=== PATIENT | female | born 1970 | race Caucasian/White ===

== ENCOUNTER 2019-05-06 21:52 | Emergency (ER) | payer MEDICAID ==
--- NOTE | 2019-05-06 22:44 | ED Physician Chart ---
ED Chief Complaint/HPI - Patient Information Date Seen:: 05/06/19 Time Seen:: 22:39 Chief Complaint:: Dizziness History of Present Illness:: 48 yo female with history of stroke with right hemiparesis, developed dizziness , headache, nausea and vomiting for 8 days. Pt stated that changing body position would worsen dizziness. Pt has light sensitivity. Allergies:: Allergies Allergy/AdvReac Type Severity Reaction Status Date / Time No Known Allergies Allergy Verified 05/06/19 22:10 Vitals:: Vital Signs - 8 hr 05/06/19 21:55 Temp 97.7 F HR 84 RR 19 BP 140/89 O2 Sat % 99 ED Review of Systems - Review of Systems General/Constitutional: No fever, No chills Skin: No rash Head: Light headed Eyes: No pain ENT: No nasal drainage Neck: No neck pain Cardio Vascular: No chest pain Pulmonary: No SOB GI: No nausea, No vomiting Musculoskeletal: No bone or joint pain Neurological: Focal symptoms ED Past Medical History - Past Medical History Past Medical History: HTN, DM, Dyslipidemia Social History: Non Smoker, No Alcohol, No Drug Use Surgical History: (x 2) ED Physical Exam - Physical Examination General/Constitutional: Awake, Alert Head: Atraumatic Eyes: PERRL, EOMI Skin: No skin lesions ENMT: Nasal exam nl Neck: No nuchal rigidity Respiratory: Clear to Auscultation Cardio Vascular: RRR, No murmur, gallop, rubs, NL S1 S2 GI: No tenderness/rebounding/guarding Extremities: No edema Neuro/Psych: Alert/oriented Other Neuro/Psych comments:: RUE 4/5, RLE 4/5, LUE 5/5, LLE 5/5 ED Labs/Radiology/EKG Results - Lab Results Results: Laboratory Last Values WBC 8.3 Th/cmm (4.8-10.8) 05/06/19 23:15 RBC 5.06 Mil/cmm (3.80-5.10) 05/06/19 23:15 Hgb 11.5 gm/dL (12-16) L 05/06/19 23:15 Hct 35.0 % (41.0-60) L 05/06/19 23:15 MCV 69.3 fl (81-100) L 05/06/19 23:15 MCH 22.7 pg (27.0-31.0) L 05/06/19 23:15 MCHC Differential 32.8 pg (28.0-36.0) 05/06/19 23:15 RDW 21.9 % (11.5-20.0) H 05/06/19 23:15 Plt Count 293 Th/cmm (150-400) 05/06/19 23:15 MPV 9.6 fl 05/06/19 23:15 Neutrophils % 52.7 % (40.0-80.0) 05/06/19 23:15 Lymphocytes % 39.6 % (20.0-50.0) 05/06/19 23:15 Monocytes % 4.3 % (2.0-10.0) 05/06/19 23:15 Eosinophils % 2.6 % (0.0-5.0) 05/06/19 23:15 Basophils % 0.8 % (0.0-2.0) 05/06/19 23:15 PT 9.7 SECONDS (9.5-11.5) 05/06/19 23:15 INR 0.93 (0.5-1.4) 05/06/19 23:15 PTT (Actin FS) 23.6 SECONDS (26.0-38.0) L 05/06/19 23:15 Sodium 137 mEq/L (136-145) 05/06/19 23:15 Potassium 3.9 mEq/L (3.5-5.1) 05/06/19 23:15 Chloride 103 mEq/L (98-107) 05/06/19 23:15 Carbon Dioxide 25.0 mEq/L (21.0-31.0) 05/06/19 23:15 Anion Gap 12.9 (7.0-16.0) 05/06/19 23:15 BUN 17 mg/dL (7-25) 05/06/19 23:15 Creatinine 0.6 mg/dL (0.6-1.2) 05/06/19 23:15 Est GFR ( Amer) > 60.0 ml/min (>90) 05/06/19 23:15 Est GFR (Non-Af Amer) > 60.0 ml/min 05/06/19 23:15 BUN/Creatinine Ratio 28.3 05/06/19 23:15 Glucose 312 mg/dL (70-105) H 05/06/19 23:15 Calcium 9.7 mg/dL (8.6-10.3) 05/06/19 23:15 Total Bilirubin 0.4 mg/dL (0.3-1.0) 05/06/19 23:15 AST 11 U/L (13-39) L 05/06/19 23:15 ALT 12 U/L (7-52) 05/06/19 23:15 Alkaline Phosphatase 104 U/L (34-104) 05/06/19 23:15 Total Protein 7.6 gm/dL (6.0-8.3) 05/06/19 23:15 Albumin 4.2 gm/dL (3.7-5.3) 05/06/19 23:15 Globulin 3.4 gm/dL 05/06/19 23:15 Albumin/Globulin Ratio 1.2 (1.0-1.8) 05/06/19 23:15 - Radiology Results Results: CT head wo contrast: no evidence of acute intracranial abnormality ED Assessment - Assessment General Assessment: BPPV Anemia, microcytic Assessment/Comments:: CT head wo contrast Meclizine 25 mg ED Septic Shock - . Is Septic Shock (SBP<90, OR Lactate>4 mmol\L) present?: No - <6hrs of presentation: Vital Signs: Vital Signs - 8 hr 05/06/19 21:55 Temp 97.7 F HR 84 RR 19 BP 140/89 O2 Sat % 99 ED Reassessment (Disposition) - Reassessment Reassessment:: Pt's headache and dizziness significantly improved after meclizine. Reassessment Condition:: Improved - Aftercare/Follow up Instructions Medication Prescribed:: Meclizine 25 mg q8h prn for dizziness, #30 - Patient Disposition Discharge/Transfer:: Home
[2019-05-06 23:28] LABS: % BASOPHILS 0.8 % (0.0-2.0); % EOSINOPHILS 2.6 % (0.0-5.0); % LYMPHOCYTES 39.6 % (20.0-50.0); % MONOCYTES 4.3 % (2.0-10.0); % NEUTROPHILS 52.7 % (40.0-80.0); BASOPHILE ABSOLUTE 0.1 Th/cumm (0-0.2); EOSINOPHILE ABSOLUTE 0.2 Th/cmm (0.1-0.4); HEMOGLOBIN 11.5 gm/dL (12-16); LYMPHOCYTE ABSOLUTE 3.3 Th/cmm (1.5-3.0); MEAN CELL VOLUME 69.3 fl (81-100); MEAN CORPUSCULAR HEMOGLOBIN 22.7 pg (27.0-31.0); MEAN CORPUSCULAR HGB CONC 32.8 pg (28.0-36.0); MONOCYTE ABSOLUTE 0.4 Th/cmm (0.3-1.0); NEUTROPHILE ABSOLUTE 4.3 Th/cmm (1.8-8.0); PLATELET COUNT 293 Th/cmm (150-400); RED BLOOD COUNT 5.06 Mil/cmm (3.80-5.10); RED CELL DISTRIBUTION WIDTH 21.9 % (11.5-20.0); WHITE BLOOD COUNT 8.3 Th/cmm (4.8-10.8)
[2019-05-06 23:36] LABS: INR 0.93 (0.5-1.4)
[2019-05-06 23:43] LABS: ALB/GLOB RATIO 1.2 (1.0-1.8); ALBUMIN 4.2 gm/dL (3.7-5.3); ALKALINE PHOSPHATASE 104 U/L (34-104); ANION GAP 12.9 (7.0-16.0); BILIRUBIN,TOTAL 0.4 mg/dL (0.3-1.0); BUN - UREA NITROGEN 17 mg/dL (7-25); CALCIUM SERUM 9.7 mg/dL (8.6-10.3); CHLORIDE 103 mEq/L (98-107); CREATININE - SERUM 0.6 mg/dL (0.6-1.2); GFR AFRICAN-AMERICAN > 60.0 ml/min (>90); GFR NON AFRICAN-AMERICAN > 60.0 ml/min; GLUCOSE 312 mg/dL (70-105); POTASSIUM SERUM 3.9 mEq/L (3.5-5.1); SGOT 11 U/L (13-39); SGPT/ALT 12 U/L (7-52); SODIUM SERUM 137 mEq/L (136-145); TOTAL PROTEIN,SERUM 7.6 gm/dL (6.0-8.3)
--- NOTE | 2019-05-07 09:42 | Diagnostic Imaging Report ---
Head CT without intravenous contrast Indication: Dizziness and headache Comparison: None Technique: Axial images were obtained from the vertex to the skull base without IV contrast. Coronal reconstructions were made. Total DLP: [id number], [id number] FINDINGS: Images of the brain obtained without contrast demonstrate no evidence of an acute hemorrhage. The jain-white matter differentiation is preserved. The ventricles and basal cisterns are patent. No mass effect or midline shift. No evidence of a skull fracture or focal soft tissue swelling. The visualized paranasal sinuses demonstrate mild mucosal thickening. IMPRESSION: No acute intracranial abnormality.
[2019-05-08 08:07] LABS: A1C 9.2 % (4.8-5.6)
== END 2019-05-07 00:17 | disposition home or self-care (01) ==
LOC: ER 21:52
DX: H81.10 Benign paroxysmal vertigo, unspecified ear (principal); D50.9 Iron deficiency anemia, unspecified; I10 Essential (primary) hypertension; E11.9 Type 2 diabetes mellitus without complications; E78.5 Hyperlipidemia, unspecified; Z98.890 Other specified postprocedural states
CPT/HCPCS: 36415-UA; 70450-TC; 80053-TC; 83036-90; 85025-TC; 85610-TC